=== PATIENT | male | born 1950 | race Caucasian/White ===

== ENCOUNTER 2017-11-25 23:23 | Inpatient (IN) | payer MEDICARE, OTHER ==
[2017-11-25] MEDS: DILUENT IV (23:45)
[2017-11-25] MEDS: NS IV (23:45)
[2017-11-26] MEDS: ACETAMINOPHEN 325 MG TAB PO (00:01)
[2017-11-26] MEDS: ONDANSETRON 4MG/2ML VIAL (J2405) IV (00:02)
[2017-11-26] MEDS: KETOROLAC 30 MG/ML VIAL (J1885) IV (00:02)
[2017-11-26] MEDS: MORPHINE 4 MG/ML 1ML VIAL/SYRINGE (J2270) IV (00:02)
[2017-11-26 00:22] LABS: BASO # 0.1 10^3/uL (0.0-0.2); BASO % 0.7 % (0.0-1.0); EOS % 0.1 % (0.0-3.0); HEMATOCRIT 46.4 % (42.0-52.0); HEMOGLOBIN 15.9 g/dl (13.5-17.5); IMMATURE GRANULOCYTE % 0.5 % (0-3.0); LYMPH # 1.1 10^3/uL (1.5-4.5); LYMPH % 5.8 % (24.0-44.0); MEAN CORPUSCULAR HEMOGLOBIN 31.5 pg (27.0-33.0); MEAN CORPUSCULAR HGB CONC 34.3 g/dl (32.0-36.5); MEAN CORPUSCULAR VOLUME 92.1 fl (80.0-96.0); MONO % 10.6 % (0.0-5.0); NEUTROPHILS # 16.1 10^3/uL (1.8-7.7); NEUTROPHILS % 82.3 % (36.0-66.0); PLATELET COUNT, AUTOMATED 192 10^3/uL (150-450); RED BLOOD COUNT 5.04 10^6/uL (4.30-6.10); RED CELL DISTRIBUTION WIDTH 14.6 % (11.5-14.5); WHITE BLOOD COUNT 19.5 10^3/uL (4.0-10.0)
[2017-11-26 00:24] LABS: ALBUMIN 3.1 GM/DL (3.2-5.2); ALBUMIN/GLOBULIN RATIO 0.62 (1.00-1.93); ALKALINE PHOSPHATASE 58 U/L (45-117); ALT/SGPT 27 U/L (12-78); ANION GAP 10 MEQ/L (8-16); AST/SGOT 21 U/L (7-37); BILIRUBIN,DIRECT 0.4 MG/DL (0.0-0.2); BLOOD UREA NITROGEN 27 MG/DL (7-18); CALCIUM LEVEL 8.1 MG/DL (8.8-10.2); CARBON DIOXIDE LEVEL 27 MEQ/L (21-32); CHLORIDE LEVEL 100 MEQ/L (98-107); CREATININE FOR GFR 2.25 MG/DL (0.70-1.30); GLOMERULAR FILTRATION RATE 31.1 (>49); GLUCOSE, FASTING 127 MG/DL (70-100); POTASSIUM SERUM 3.8 MEQ/L (3.5-5.1); SODIUM LEVEL 137 MEQ/L (136-145); TOTAL PROTEIN 8.1 GM/DL (6.4-8.2)
[2017-11-26 00:42] LABS: LACTIC ACID SEPSIS PROTOCOL 2.1 MMOL/L (0.4-2.0)
[2017-11-26 00:47] LABS: MONO # 2.1 10^3/uL (0.0-0.8); POSITIVE DIFF POS FLAG
[2017-11-26 04:24] LABS: APPEARANCE, URINE HAZY (CLEAR); BACTERIA, URINE AUTO NEGATIVE (NEGATIVE); BILIRUBIN, URINE AUTO NEGATIVE (NEGATIVE); BLOOD, URINE BLOOD NEGATIVE (NEGATIVE); COLOR, URINE AMBER (YELLOW); GLUCOSE, URINE (UA) AUTO NEGATIVE (NEGATIVE); KETONE, URINE AUTO NEGATIVE (NEGATIVE); LEUKOCYTE ESTERASE, URINE AUTO NEGATIVE (NEGATIVE); MUCUS, URINE SMALL (NEGATIVE); NITRITE, URINE AUTO NEGATIVE (NEGATIVE); PROTEIN, URINE AUTO 2+ mg/dL (NEGATIVE); RBC, URINE AUTO 1 /HPF (0-3); SPECIFIC GRAVITY URINE AUTO 1.018 (1.002-1.035); SQUAMOUS EPITHELIAL CELL UR AU 1 /HPF (0-6); WBC, URINE AUTO 2 /HPF (0-3)
[2017-11-26] MEDS: LevoFLOXacin IV 750 MG in APPROPRIATE DILUENT 1 EA IV (04:38)
[2017-11-26] MEDS ORDERED: IPRATROPIUM 0.5MG/ALBUTEROL 2.5MG INH SOL UD 3ML (DUONEB)(J7620) NEB (05:30)
[2017-11-26] MEDS: HEPARIN SOD (PORCINE) 5000 UNITS/ML VIAL SC ×3 (06:00→22:06)
[2017-11-26] MEDS: IPRATROPIUM 0.5MG/ALBUTEROL 2.5MG INH SOL UD 3ML (DUONEB)(J7620) NEB ×4 (08:00→20:00)
[2017-11-26] MEDS: TIOTROPIUM INHALER/CAPSULE (SPIRIVA) INH (08:31)
[2017-11-26] MEDS: ADVAIR HFA 230/21MCG INHALER INH ×2 (08:31→20:16)
[2017-11-26] MEDS: NS 1,000 ML IV ×2 (09:07→16:12)
[2017-11-26] MEDS: ASPIRIN 81 MG ENTERIC TAB PO (09:55)
[2017-11-26] MEDS: buPROPion **SR TABLET** (ZYBAN) 150MG PO ×2 (09:55→22:05)
[2017-11-26] MEDS: GABAPENTIN 300 MG CAP PO ×4 (09:55→22:05)
[2017-11-26] MEDS: OMEPRAZOLE 20 MG CAP PO (09:55)
[2017-11-26] MEDS: HYDROcodone/APAP LIQUID 7.5-325MG 15ML UDC (LORTAB ELIXIR) PO ×3 (09:58→22:23)
[2017-11-26] MEDS: NITROGLYCERIN 0.4 MG/HR PATCH TOP (09:59)
[2017-11-26] MEDS: VANCOMYCIN HCL 1,000 MG, VIAL MATE ADAPTER 1 EACH in D5W 250 ML IV (09:59)
[2017-11-26] MEDS: VANCOMYCIN HCL 500 MG in D5W MINI-BAG PLUS 100 ML IV (12:34)
[2017-11-26] MEDS: PRAVASTATIN 20 MG TAB PO (17:47)
[2017-11-26] MEDS: ACETAMINOPHEN TAB 650MG DOSE (2X325MG) PO (17:48)
[2017-11-26 18:31] LABS: ABG BASE EXCESS -4.1 (-2.0-2.0); ABG HCO3 19.2 MEQ/L (22.0-26.0); ABG O2 SATURATION 86.5 % (95.0-99.0); ABG PARTIAL PRESSURE CO2 30.6 mmHg (35.0-45.0); ABG PARTIAL PRESSURE O2 50.2 mmHg (75.0-100.0); ABG STANDARD HCO3 20.9 MEQ/L (22.0-26.0); ABG TOTAL CO2 20.2 MEQ/L (23.0-31.0); ABG pH (ARTERIAL) 7.416 UNITS (7.350-7.450)
[2017-11-26 18:41] LABS: BASO # 0.1 10^3/uL (0.0-0.2); BASO % 0.3 % (0.0-1.0); HEMATOCRIT 42.2 % (42.0-52.0); IMMATURE GRANULOCYTE % 0.8 % (0-3.0); LYMPH # 0.5 10^3/uL (1.5-4.5); LYMPH % 3.2 % (24.0-44.0); MEAN CORPUSCULAR HEMOGLOBIN 31.2 pg (27.0-33.0); MEAN CORPUSCULAR HGB CONC 33.2 g/dl (32.0-36.5); MONO % 5.9 % (0.0-5.0); NEUTROPHILS # 14.8 10^3/uL (1.8-7.7); NEUTROPHILS % 89.8 % (36.0-66.0); PLATELET COUNT, AUTOMATED 152 10^3/uL (150-450); RED BLOOD COUNT 4.49 10^6/uL (4.30-6.10); RED CELL DISTRIBUTION WIDTH 14.9 % (11.5-14.5); WHITE BLOOD COUNT 16.5 10^3/uL (4.0-10.0)
[2017-11-26 19:00] LABS: LACTIC ACID SEPSIS PROTOCOL 1.7 MMOL/L (0.4-2.0)
[2017-11-26 19:05] LABS: ANION GAP 10 MEQ/L (8-16); BLOOD UREA NITROGEN 36 MG/DL (7-18); CALCIUM LEVEL 6.7 MG/DL (8.8-10.2); CARBON DIOXIDE LEVEL 23 MEQ/L (21-32); CHLORIDE LEVEL 104 MEQ/L (98-107); CREATININE FOR GFR 2.21 MG/DL (0.70-1.30); GLOMERULAR FILTRATION RATE 31.8 (>49); GLUCOSE, FASTING 120 MG/DL (70-100); MAGNESIUM LEVEL 1.4 MG/DL (1.8-2.4); POTASSIUM SERUM 4.6 MEQ/L (3.5-5.1); SODIUM LEVEL 137 MEQ/L (136-145)
[2017-11-26 19:21] LABS: ERYTHROCYTE SEDIMENTATION RATE 64 mm/hr (0-20)
[2017-11-26] MEDS: **NOTE PATIENT COMMENT** MISC XX (21:00)
[2017-11-26] MEDS: MAG SULF 1GM/100ML (MAG RUN) 1 GM in APPROPRIATE DILUENT 1 EA IV (22:05)
[2017-11-27] MEDS: NS 1,000 ML IV ×3 (00:05→23:50)
[2017-11-27] MEDS: MAG SULF 1GM/100ML (MAG RUN) 1 GM in APPROPRIATE DILUENT 1 EA IV (00:11)
[2017-11-27] MEDS ORDERED: ONDANSETRON 4MG/2ML VIAL (J2405) IV (05:00)
[2017-11-27 05:31] LABS: BASO # 0.1 10^3/uL (0.0-0.2); BASO % 0.4 % (0.0-1.0); HEMATOCRIT 41.2 % (42.0-52.0); IMMATURE GRANULOCYTE % 0.7 % (0-3.0); LYMPH # 0.6 10^3/uL (1.5-4.5); LYMPH % 3.7 % (24.0-44.0); MEAN CORPUSCULAR HEMOGLOBIN 31.6 pg (27.0-33.0); MONO # 0.9 10^3/uL (0.0-0.8); MONO % 5.7 % (0.0-5.0); NEUTROPHILS # 13.7 10^3/uL (1.8-7.7); NEUTROPHILS % 89.5 % (36.0-66.0); PLATELET COUNT, AUTOMATED 156 10^3/uL (150-450); RED BLOOD COUNT 4.43 10^6/uL (4.30-6.10); RED CELL DISTRIBUTION WIDTH 15.1 % (11.5-14.5); WHITE BLOOD COUNT 15.3 10^3/uL (4.0-10.0)
[2017-11-27 05:54] LABS: ANION GAP 10 MEQ/L (8-16); BLOOD UREA NITROGEN 34 MG/DL (7-18); CALCIUM LEVEL 7.1 MG/DL (8.8-10.2); CARBON DIOXIDE LEVEL 21 MEQ/L (21-32); CHLORIDE LEVEL 105 MEQ/L (98-107); CREATININE FOR GFR 2.03 MG/DL (0.70-1.30); GLUCOSE, FASTING 133 MG/DL (70-100); MAGNESIUM LEVEL 2.4 MG/DL (1.8-2.4); POTASSIUM SERUM 4.2 MEQ/L (3.5-5.1); SODIUM LEVEL 136 MEQ/L (136-145)
[2017-11-27] MEDS: ONDANSETRON 4MG/2ML VIAL (J2405) IV (05:59)
[2017-11-27] MEDS: VANCOMYCIN HCL 1,000 MG, VIAL MATE ADAPTER 1 EACH in D5W 250 ML IV ×2 (06:00→17:40)
[2017-11-27] MEDS: HEPARIN SOD (PORCINE) 5000 UNITS/ML VIAL SC ×3 (06:00→21:11)
[2017-11-27] MEDS: ADVAIR HFA 230/21MCG INHALER INH ×2 (08:01→20:14)
[2017-11-27] MEDS: TIOTROPIUM INHALER/CAPSULE (SPIRIVA) INH (08:01)
[2017-11-27] MEDS: IPRATROPIUM 0.5MG/ALBUTEROL 2.5MG INH SOL UD 3ML (DUONEB)(J7620) NEB ×5 (08:01→23:08)
[2017-11-27] MEDS: OMEPRAZOLE 20 MG CAP PO (08:48)
[2017-11-27] MEDS: buPROPion **SR TABLET** (ZYBAN) 150MG PO ×2 (08:48→21:12)
[2017-11-27] MEDS: GABAPENTIN 300 MG CAP PO ×4 (08:49→21:12)
[2017-11-27] MEDS: HYDROcodone/APAP LIQUID 7.5-325MG 15ML UDC (LORTAB ELIXIR) PO ×3 (08:49→21:13)
[2017-11-27] MEDS: ASPIRIN 81 MG ENTERIC TAB PO (08:52)
[2017-11-27] MEDS: NITROGLYCERIN 0.4 MG/HR PATCH TOP (08:53)
[2017-11-27] MEDS: methylPREDNISolone INJ 40 MG/1 ML VIAL (J2920) IV ×2 (09:36→21:11)
[2017-11-27 10:37] LABS: VANCOMYCIN LEVEL TROUGH 7.8 UG/ML (10.0-20.0)
[2017-11-27] MEDS: PRAVASTATIN 20 MG TAB PO (17:40)
[2017-11-27] MEDS: **NOTE PATIENT COMMENT** MISC XX (21:00)
[2017-11-28] MEDS: IPRATROPIUM 0.5MG/ALBUTEROL 2.5MG INH SOL UD 3ML (DUONEB)(J7620) NEB ×6 (03:09→23:41)
[2017-11-28 05:25] LABS: HEMATOCRIT 35.7 % (42.0-52.0); HEMOGLOBIN 12.2 g/dl (13.5-17.5); MEAN CORPUSCULAR HEMOGLOBIN 31.6 pg (27.0-33.0); MEAN CORPUSCULAR HGB CONC 34.2 g/dl (32.0-36.5); MEAN CORPUSCULAR VOLUME 92.5 fl (80.0-96.0); PLATELET COUNT, AUTOMATED 152 10^3/uL (150-450); RED BLOOD COUNT 3.86 10^6/uL (4.30-6.10); WHITE BLOOD COUNT 8.6 10^3/uL (4.0-10.0)
[2017-11-28 05:58] LABS: ANION GAP 8 MEQ/L (8-16); BLOOD UREA NITROGEN 25 MG/DL (7-18); CALCIUM LEVEL 7.1 MG/DL (8.8-10.2); CARBON DIOXIDE LEVEL 23 MEQ/L (21-32); CHLORIDE LEVEL 108 MEQ/L (98-107); CREATININE FOR GFR 1.39 MG/DL (0.70-1.30); GLOMERULAR FILTRATION RATE 54.3 (>49); GLUCOSE, FASTING 171 MG/DL (70-100); MAGNESIUM LEVEL 2.5 MG/DL (1.8-2.4); POTASSIUM SERUM 4.2 MEQ/L (3.5-5.1); SODIUM LEVEL 139 MEQ/L (136-145)
[2017-11-28] MEDS: HEPARIN SOD (PORCINE) 5000 UNITS/ML VIAL SC ×3 (06:34→20:28)
[2017-11-28] MEDS: TIOTROPIUM INHALER/CAPSULE (SPIRIVA) INH (07:38)
[2017-11-28] MEDS: ADVAIR HFA 230/21MCG INHALER INH ×2 (07:39→20:01)
[2017-11-28] MEDS: GABAPENTIN 300 MG CAP PO ×4 (09:00→20:29)
[2017-11-28] MEDS: LevoFLOXacin IV 750 MG in APPROPRIATE DILUENT 1 EA IV (10:00)
[2017-11-28] MEDS: OMEPRAZOLE 20 MG CAP PO (10:00)
[2017-11-28] MEDS: HYDROcodone/APAP LIQUID 7.5-325MG 15ML UDC (LORTAB ELIXIR) PO ×3 (10:01→20:29)
[2017-11-28] MEDS: ASPIRIN 81 MG ENTERIC TAB PO (10:01)
[2017-11-28] MEDS: buPROPion **SR TABLET** (ZYBAN) 150MG PO ×2 (10:02→20:29)
[2017-11-28] MEDS: methylPREDNISolone INJ 40 MG/1 ML VIAL (J2920) IV ×2 (10:02→21:28)
[2017-11-28] MEDS: NITROGLYCERIN 0.4 MG/HR PATCH TOP (10:02)
[2017-11-28] MEDS ORDERED: SLF 3 ML SYR IV (11:00)
[2017-11-28 12:00] LABS: VANCOMYCIN LEVEL TROUGH 5.2 UG/ML (10.0-20.0)
[2017-11-28] MEDS: SLF 3 ML SYR IV ×2 (13:14→20:30)
[2017-11-28] MEDS: VANCOMYCIN HCL 500 MG in D5W MINI-BAG PLUS 100 ML IV (13:14)
[2017-11-28] MEDS: VANCOMYCIN HCL 1,000 MG, VIAL MATE ADAPTER 1 EACH in D5W 250 ML IV (13:14)
[2017-11-28] MEDS: PRAVASTATIN 20 MG TAB PO (18:23)
[2017-11-28] MEDS: **NOTE PATIENT COMMENT** MISC XX (20:30)
[2017-11-28 21:14] LABS: BEDSIDE GLUCOSE 133 MG/DL (80-115)
[2017-11-28] MEDS: BUMETANIDE 1 MG TAB PO (21:29)
[2017-11-29 00:07] LABS: BODY FLUID CULTURE Not Indicated (.); ORGANISM ID Not indicated. (.); SPECIMEN SOURCE Urine (.); URINE STREP PNEUMONIAE ANTIGEN Negative (Negative)
[2017-11-29] MEDS: VANCOMYCIN HCL 1,000 MG, VIAL MATE ADAPTER 1 EACH in D5W 250 ML IV ×2 (01:45→13:10)
[2017-11-29] MEDS: IPRATROPIUM 0.5MG/ALBUTEROL 2.5MG INH SOL UD 3ML (DUONEB)(J7620) NEB ×6 (03:47→23:23)
[2017-11-29] MEDS: SLF 3 ML SYR IV ×3 (05:22→22:20)
[2017-11-29] MEDS: HEPARIN SOD (PORCINE) 5000 UNITS/ML VIAL SC ×3 (05:22→19:58)
[2017-11-29 05:36] LABS: HEMATOCRIT 37.1 % (42.0-52.0); HEMOGLOBIN 12.7 g/dl (13.5-17.5); MEAN CORPUSCULAR HEMOGLOBIN 31.2 pg (27.0-33.0); MEAN CORPUSCULAR HGB CONC 34.2 g/dl (32.0-36.5); MEAN CORPUSCULAR VOLUME 91.2 fl (80.0-96.0); PLATELET COUNT, AUTOMATED 223 10^3/uL (150-450); RED BLOOD COUNT 4.07 10^6/uL (4.30-6.10); RED CELL DISTRIBUTION WIDTH 15.2 % (11.5-14.5); WHITE BLOOD COUNT 12.2 10^3/uL (4.0-10.0)
[2017-11-29 05:51] LABS: ANION GAP 6 MEQ/L (8-16); BLOOD UREA NITROGEN 27 MG/DL (7-18); CALCIUM LEVEL 7.3 MG/DL (8.8-10.2); CARBON DIOXIDE LEVEL 28 MEQ/L (21-32); CHLORIDE LEVEL 108 MEQ/L (98-107); GLOMERULAR FILTRATION RATE 49.7 (>49); GLUCOSE, FASTING 132 MG/DL (70-100); MAGNESIUM LEVEL 2.2 MG/DL (1.8-2.4); POTASSIUM SERUM 4.6 MEQ/L (3.5-5.1); SODIUM LEVEL 142 MEQ/L (136-145)
[2017-11-29] MEDS: TIOTROPIUM INHALER/CAPSULE (SPIRIVA) INH (07:30)
[2017-11-29] MEDS: ADVAIR HFA 230/21MCG INHALER INH ×2 (07:30→20:45)
[2017-11-29] MEDS: methylPREDNISolone INJ 40 MG/1 ML VIAL (J2920) IV ×2 (08:44→22:20)
[2017-11-29] MEDS: NITROGLYCERIN 0.4 MG/HR PATCH TOP (08:44)
[2017-11-29] MEDS: buPROPion **SR TABLET** (ZYBAN) 150MG PO ×2 (08:45→19:58)
[2017-11-29] MEDS: OMEPRAZOLE 20 MG CAP PO (08:45)
[2017-11-29] MEDS: GABAPENTIN 300 MG CAP PO ×4 (08:45→19:58)
[2017-11-29] MEDS: HYDROcodone/APAP LIQUID 7.5-325MG 15ML UDC (LORTAB ELIXIR) PO ×3 (08:45→19:57)
[2017-11-29] MEDS: ASPIRIN 81 MG ENTERIC TAB PO (08:46)
[2017-11-29] MEDS ORDERED: VANCOMYCIN HCL 500 MG in D5W MINI-BAG PLUS 100 ML IV (14:00)
[2017-11-29] MEDS: PRAVASTATIN 20 MG TAB PO (18:12)
[2017-11-29] MEDS: **NOTE PATIENT COMMENT** MISC XX (19:58)
[2017-11-29 20:03] LABS: BEDSIDE GLUCOSE 150 MG/DL (80-115)
[2017-11-30 00:07] LABS: LEGIONELLA ANTIGEN URINE Positive (Negative)
[2017-11-30] MEDS: IPRATROPIUM 0.5MG/ALBUTEROL 2.5MG INH SOL UD 3ML (DUONEB)(J7620) NEB ×6 (04:02→23:49)
[2017-11-30] MEDS: SLF 3 ML SYR IV ×3 (05:09→21:52)
[2017-11-30] MEDS: HEPARIN SOD (PORCINE) 5000 UNITS/ML VIAL SC ×3 (05:09→21:52)
[2017-11-30 06:21] LABS: HEMATOCRIT 38.5 % (42.0-52.0); HEMOGLOBIN 12.9 g/dl (13.5-17.5); MEAN CORPUSCULAR HEMOGLOBIN 30.6 pg (27.0-33.0); MEAN CORPUSCULAR HGB CONC 33.5 g/dl (32.0-36.5); MEAN CORPUSCULAR VOLUME 91.4 fl (80.0-96.0); PLATELET COUNT, AUTOMATED 240 10^3/uL (150-450); RED BLOOD COUNT 4.21 10^6/uL (4.30-6.10); RED CELL DISTRIBUTION WIDTH 14.9 % (11.5-14.5)
[2017-11-30 06:39] LABS: ANION GAP 7 MEQ/L (8-16); BLOOD UREA NITROGEN 30 MG/DL (7-18); C REACTIVE PROTEIN QUANTITATIV 6.36 MG/DL (0.00-0.30); CALCIUM LEVEL 7.6 MG/DL (8.8-10.2); CARBON DIOXIDE LEVEL 26 MEQ/L (21-32); CHLORIDE LEVEL 112 MEQ/L (98-107); CREATININE FOR GFR 1.36 MG/DL (0.70-1.30); GLOMERULAR FILTRATION RATE 55.6 (>49); GLUCOSE, FASTING 149 MG/DL (70-100); MAGNESIUM LEVEL 2.2 MG/DL (1.8-2.4); POTASSIUM SERUM 4.5 MEQ/L (3.5-5.1); SODIUM LEVEL 145 MEQ/L (136-145)
[2017-11-30] MEDS: ADVAIR HFA 230/21MCG INHALER INH ×2 (07:27→20:46)
[2017-11-30] MEDS: TIOTROPIUM INHALER/CAPSULE (SPIRIVA) INH (07:28)
[2017-11-30] MEDS: LevoFLOXacin IV 750 MG in APPROPRIATE DILUENT 1 EA IV (08:02)
[2017-11-30] MEDS: GABAPENTIN 300 MG CAP PO ×4 (08:03→20:14)
[2017-11-30] MEDS: buPROPion **SR TABLET** (ZYBAN) 150MG PO ×2 (08:03→20:14)
[2017-11-30] MEDS: ASPIRIN 81 MG ENTERIC TAB PO (08:03)
[2017-11-30] MEDS: HYDROcodone/APAP LIQUID 7.5-325MG 15ML UDC (LORTAB ELIXIR) PO ×3 (08:06→20:17)
[2017-11-30] MEDS: OMEPRAZOLE 20 MG CAP PO (08:06)
[2017-11-30] MEDS: NITROGLYCERIN 0.4 MG/HR PATCH TOP (08:07)
[2017-11-30] MEDS: methylPREDNISolone INJ 40 MG/1 ML VIAL (J2920) IV ×2 (09:10→21:52)
[2017-11-30] MEDS: BUMETANIDE 1 MG TAB PO (11:25)
[2017-11-30] MEDS: PRAVASTATIN 20 MG TAB PO (16:41)
[2017-11-30] MEDS: **NOTE PATIENT COMMENT** MISC XX (21:00)
[2017-12-01] MEDS: IPRATROPIUM 0.5MG/ALBUTEROL 2.5MG INH SOL UD 3ML (DUONEB)(J7620) NEB ×2 (03:46→07:17)
[2017-12-01 05:59] LABS: HEMATOCRIT 39.5 % (42.0-52.0); HEMOGLOBIN 13.4 g/dl (13.5-17.5); MEAN CORPUSCULAR HEMOGLOBIN 31.3 pg (27.0-33.0); MEAN CORPUSCULAR HGB CONC 33.9 g/dl (32.0-36.5); MEAN CORPUSCULAR VOLUME 92.3 fl (80.0-96.0); PLATELET COUNT, AUTOMATED 288 10^3/uL (150-450); RED BLOOD COUNT 4.28 10^6/uL (4.30-6.10); RED CELL DISTRIBUTION WIDTH 15.1 % (11.5-14.5); WHITE BLOOD COUNT 12.8 10^3/uL (4.0-10.0)
[2017-12-01] MEDS: HEPARIN SOD (PORCINE) 5000 UNITS/ML VIAL SC (06:00)
[2017-12-01] MEDS: SLF 3 ML SYR IV (06:11)
[2017-12-01 06:17] LABS: ANION GAP 7 MEQ/L (8-16); BLOOD UREA NITROGEN 31 MG/DL (7-18); C REACTIVE PROTEIN QUANTITATIV 3.58 MG/DL (0.00-0.30); CALCIUM LEVEL 7.5 MG/DL (8.8-10.2); CARBON DIOXIDE LEVEL 28 MEQ/L (21-32); CHLORIDE LEVEL 110 MEQ/L (98-107); CREATININE FOR GFR 1.45 MG/DL (0.70-1.30); GLOMERULAR FILTRATION RATE 51.7 (>49); GLUCOSE, FASTING 144 MG/DL (70-100); MAGNESIUM LEVEL 2.1 MG/DL (1.8-2.4); POTASSIUM SERUM 4.3 MEQ/L (3.5-5.1); SODIUM LEVEL 145 MEQ/L (136-145)
[2017-12-01] MEDS: TIOTROPIUM INHALER/CAPSULE (SPIRIVA) INH (07:14)
[2017-12-01] MEDS: ADVAIR HFA 230/21MCG INHALER INH (07:14)
[2017-12-01] MEDS: NITROGLYCERIN 0.4 MG/HR PATCH TOP (08:34)
[2017-12-01] MEDS: GABAPENTIN 300 MG CAP PO (08:35)
[2017-12-01] MEDS: OMEPRAZOLE 20 MG CAP PO (08:35)
[2017-12-01] MEDS: predniSONE 20 MG TAB PO (08:35)
[2017-12-01] MEDS: HYDROcodone/APAP LIQUID 7.5-325MG 15ML UDC (LORTAB ELIXIR) PO (08:36)
[2017-12-01] MEDS: ASPIRIN 81 MG ENTERIC TAB PO (08:36)
[2017-12-01] MEDS: buPROPion **SR TABLET** (ZYBAN) 150MG PO (08:36)
== END 2017-12-01 10:55 | disposition home or self-care (01) | DRG 871 ==
LOC: M ED 23:23 → M ED INP 11-26 05:21 → M PCU 11-26 09:00
DX: A41.9 Sepsis, unspecified organism (principal); J18.9 Pneumonia, unspecified organism; J96.01 Acute respiratory failure with hypoxia; N17.9 Acute kidney failure, unspecified; J44.0 Chronic obstructive pulmonary disease with (acute) lower respiratory infection; R65.20 Severe sepsis without septic shock; M54.9 Dorsalgia, unspecified; R91.8 Other nonspecific abnormal finding of lung field; E83.42 Hypomagnesemia; I50.9 Heart failure, unspecified; I11.0 Hypertensive heart disease with heart failure; K21.9 Gastro-esophageal reflux disease without esophagitis; E78.5 Hyperlipidemia, unspecified; M21.371 Foot drop, right foot; Z79.82 Long term (current) use of aspirin; Z79.899 Other long term (current) drug therapy; Z88.1 Allergy status to other antibiotic agents; Z87.891 Personal history of nicotine dependence; Z79.891 Long term (current) use of opiate analgesic

== ENCOUNTER → 2018-04-13 | Outpatient (CLI) | payer MEDICARE, OTHER | LOC: M RAD 10:23 | DX: J43.9 Emphysema, unspecified (principal); R91.8 Other nonspecific abnormal finding of lung field; Z87.891 Personal history of nicotine dependence | CPT/HCPCS: 71250 ==

== ENCOUNTER → 2018-04-18 | Outpatient (CLI) | payer MEDICARE, OTHER ==
[~2018-04-18] MED LIST: ADV500INH INH; ASPI1TAB PO; BUME2TAB PO; BUPR15TASR PO; DILT120C82 PO; GABA-843 PO; HYDR-3716 PO; LEVA750T7 PO; MUCI600T31 PO; NITR0.4D6 TOP; OMEP40CA2 PO; POTA1TAB14 PO; PRAV20TA2 PO; PRED10TA2 PO; TIOT18INH INH
--- NOTE | 2018-04-18 11:05 | REP ---
Chest two views HISTORY: Cough Comparison: 12/15/2017 Linear densities are present in the upper lobes consistent with scarring. Bullae are present in the upper lobes. The heart is normal in size. The pulmonary vasculature is normal in appearance. The bony structure is intact. IMPRESSION: COPD. Electronically Signed by Man Smith MD 04/18/2018 10:57 A
== END ==
LOC: M LRY 10:32
PROVIDERS: ATTEND Nurse Practitioner Family
DX: J44.9 Chronic obstructive pulmonary disease, unspecified (principal); R05 Cough
CPT/HCPCS: 71046; G0463

== ENCOUNTER → 2018-10-24 | Outpatient (CLI) | payer OTHER, MEDICARE ==
[~2018-10-24] MED LIST changes: -ASPI1TAB PO; +ASPI81TA26 PO; -BUME2TAB PO; +BUME2TAB3 PO; -DILT120C82 PO; +DILT1CAP PO
--- NOTE | 2018-10-24 13:43 | REP ---
PET/CT: HISTORY: Diagnosing abnormal results of function studies of organs. COMPARISONS: Comparison chest CT study April 13, 2018. Comparison is also made with the November 26, [address] TECHNIQUE: 51 minutes following the intravenous injection of a 9.11 mCi dose of F-18 FDG, three-dimensional PET scintigraphy is acquired from the skull base to the proximal thighs. Triplanar noncontrast CT scanning is acquired through the same anatomic range for attenuation correction, and image registration with scan parameters optimized to minimize radiation exposure to the patient. PET scintigraphy and CT datasets were fused and displayed on a workstation with multiplanar and projection display capability. PET/CT FINDINGS: There is a new band of linear atelectasis in the right upper lobe oriented obliquely on today's accompanying CT study. This is not apparent April 13, 2018 or November 26, 2017. There is no discernible FDP accumulation however; this is not hypermetabolic. There is no abnormal hypermetabolic uptake visible in the chest. No hypermetabolic hilar or mediastinal price uptake is seen. Head and neck soft tissues are unremarkable. In the abdomen and pelvis, there is no abnormal hypermetabolic uptake. Incidental note is made of a 3.5 cm infrarenal abdominal aortic aneurysm. IMPRESSION: Negative PET scintigraphy. There is a linear band of new atelectasis in the right upper lobe visible today on CT, but no abnormal hypermetabolic uptake is seen in the chest. Emphysematous changes are again noted. Electronically Signed by Osei Pino MD 10/24/2018 04:05 P
== END ==
LOC: M PLARAD 09:26
DX: Z87.891 Personal history of nicotine dependence (principal); J98.11 Atelectasis; I71.4 Abdominal aortic aneurysm, without rupture; Z95.5 Presence of coronary angioplasty implant and graft; R91.8 Other nonspecific abnormal finding of lung field
CPT/HCPCS: 78815; A9552

== ENCOUNTER 2019-10-31 10:52 | Inpatient (IN) | payer MEDICARE, OTHER ==
[~2019-10-31] VITALS: Ht 180.3 cm; Wt 108.0 kg
[~2019-10-31 10:52] MED LIST changes: +GABA-282 PO; -GABA-843 PO; -OMEP40CA2 PO; +OMEP40CA97 PO
[2019-10-31 15:45] VITALS: BP 145/68
[2019-10-31 16:11] LABS: ABG BASE EXCESS -2.1 (-2.0-2.0); ABG HCO3 20.8 MEQ/L (22.0-26.0); ABG O2 SATURATION 91.2 % (95.0-99.0); ABG PARTIAL PRESSURE CO2 30.8 mmHg (35.0-45.0); ABG PARTIAL PRESSURE O2 59.1 mmHg (75.0-100.0); ABG STANDARD HCO3 22.6 MEQ/L (22.0-26.0); ABG TOTAL CO2 21.7 MEQ/L (23.0-31.0); ABG pH (ARTERIAL) 7.447 UNITS (7.350-7.450)
[2019-10-31 16:16] LABS: BASO # 0.1 10^3/uL (0.0-0.2); BASO % 0.2 % (0.0-1.0); HEMOGLOBIN 14.7 g/dl (13.5-17.5); LYMPH # 0.6 10^3/uL (1.5-5.0); LYMPH % 2.1 % (24.0-44.0); MEAN CORPUSCULAR HEMOGLOBIN 31.5 pg (27.0-33.0); MEAN CORPUSCULAR HGB CONC 33.4 g/dl (32.0-36.5); MEAN CORPUSCULAR VOLUME 94.4 fl (80.0-96.0); MONO # 1.1 10^3/uL (0.0-0.8); NEUTROPHILS # 25.8 10^3/uL (1.5-8.5); NEUTROPHILS % 92.9 % (36.0-66.0); PLATELET COUNT, AUTOMATED 226 10^3/uL (150-450); RED BLOOD COUNT 4.66 10^6/uL (4.30-6.10); WHITE BLOOD COUNT 27.8 10^3/uL (4.0-10.0)
[2019-10-31] MEDS ORDERED: SPIR1CAP INH (16:16)
[2019-10-31] MEDS ORDERED: D31000TA2 PO (16:16)
[2019-10-31] MEDS ORDERED: LOVE1INJ2 SC (16:16)
[2019-10-31] MEDS ORDERED: ZOSY1INJ5 IV (16:16)
[2019-10-31] MEDS ORDERED: INSUH10VL SC (16:16)
[2019-10-31] MEDS ORDERED: CVS1CAP2 PO (16:16)
[2019-10-31] MEDS ORDERED: IPRA0.00 INH (16:16)
[2019-10-31] MEDS ORDERED: HYDR-4514 PO (16:16)
[2019-10-31] MEDS ORDERED: METH125I3 IV (16:16)
[2019-10-31 16:45] LABS: ALBUMIN 2.7 GM/DL (3.2-5.2); ALT/SGPT 16 U/L (12-78); BILIRUBIN,TOTAL 0.5 MG/DL (0.2-1.0); BLOOD UREA NITROGEN 30 MG/DL (7-18); CALCIUM LEVEL 8.2 MG/DL (8.8-10.2); CARBON DIOXIDE LEVEL 23 MEQ/L (21-32); CHLORIDE LEVEL 105 MEQ/L (98-107); CK-MB VALUE MASS 3.2 NG/ML (<3.6); CPK CREATINE PHOSPHOKINASE 120 U/L (39-308); GLOMERULAR FILTRATION RATE 37.6 (>49); GLUCOSE, FASTING 158 MG/DL (70-100); MB/CK RELATIVE INDEX 2.67 (< OR =4); NT-PRO BNP 799 PG/ML (<125); POTASSIUM SERUM 3.5 MEQ/L (3.5-5.1); SODIUM LEVEL 139 MEQ/L (136-145); TOTAL PROTEIN 6.2 GM/DL (6.4-8.2); TROPONIN I < 0.02 NG/ML (< 0.10)
[2019-10-31 16:49] LABS: ERYTHROCYTE SEDIMENTATION RATE 59 mm/hr (0-20)
[2019-10-31] MEDS ORDERED: IPRATROPIUM 0.5MG/ALBUTEROL 2.5MG INH SOL UD 3ML (DUONEB) INH PRN (17:45)
[2019-10-31 18:00] VITALS: BP 120/69
[2019-10-31] MEDS ORDERED: methylPREDNISolone 125MG 2ML VIAL IV SCH (18:00)
[2019-10-31] MEDS: PIPERACILLIN/TAZOBACTAM SOD 2.25 GM in D5W MINI-BAG PLUS 50 ML IV SCH (18:09)
[2019-10-31] MEDS: GABAPENTIN 300 MG CAP PO SCH ×2 (18:09→21:04)
[2019-10-31] MEDS: methylPREDNISolone 40MG 1ML VIAL IV SCH ×2 (18:09→23:35)
[2019-10-31] MEDS: ANEXSIA, NORCO 7.5MG/325MG TABLET(HYDROCODONE/APAP) PO PRN (18:11)
[2019-10-31] MEDS ORDERED: GLUCOSE 4GM CHEW TABLET PO PRN (18:15)
[2019-10-31] MEDS ORDERED: DEXTROSE 50% 50 ML SYRINGE IV PRN (18:15)
[2019-10-31] MEDS ORDERED: GLUCAGON INJ 1MG VIAL SC PRN (18:15)
[2019-10-31] MEDS: HumaLOG INSULIN (NovoLOG) PER UNIT SC SCH ×2 (18:25→21:00)
[2019-10-31] MEDS ORDERED: NS 500 ML IV ONE (18:45)
--- NOTE | 2019-10-31 18:52 | HPEPDOC ---
[facility] Medical History & Physical Date of Admission Oct 31, 2019 Date of Service: Oct 31, 2019 Attending Physician: KIKO RODGERS MD History and Physical CHIEF COMPLAINT: Transferred from [facility] HISTORY OF PRESENT ILLNESS: 69-year-old male with past medical history of COPD, coronary artery disease, [place], status post stent placement 2, congestive heart failure, diabetes mellitus and chronic kidney disease is transferred from [facility] for pneumonia. Patient was admitted there yesterday for pneumonia, requiring 5 L of supplemental oxygen by nasal cannula and transferred for higher level of care. Patient seen in the ICU, comfortable, reports improvement in dyspnea and cough from yesterday. He reports falling 2 weeks ago and injuring his right hand and right chest wall, has been taking shallow breaths since then and developed a cough and fever 3 days ago for which she went to the hospital. He reports improvement in symptoms since yesterday. He has no additional complaints at this time, denies nausea, vomiting, abdominal pain, diarrhea or constipation. 10 point review of system is negative so for above PAST MEDICAL HISTORY: 1. COPD. 2. Congestive heart failure. 3. Coronary artery disease. 4. Myocardial infarction. 5. Diabetes mellitus. 6. Chronic kidney disease PAST SURGICAL HISTORY: 1. Multiple neck and back surgeries. SOCIAL HISTORY: Previous smoker. Denies alcohol use. Denies drug use FAMILY HISTORY: Positive for heart disease in both parents ALLERGIES: Please see below. HOME MEDICATIONS: Please see below. PHYSICAL EXAMINATION: VITAL SIGNS: Please see below. GENERAL: No distress HEENT: Normocephalic, atraumatic, moist mucous membranes NECK: Supple CARDIOVASCULAR EXAMINATION: S1, S2, tachycardic RESPIRATORY EXAMINATION: Diminished, poor air movement, bibasilar crackles appreciated, mild wheezing ABDOMINAL EXAMINATION: Soft, nontender, nondistended, positive bowel sounds EXTREMITIES: Range of motion intact SKIN: No rash NEUROLOGICAL EXAMINATION: Alert and oriented 3, no focal deficits PSYCHIATRIC EXAMINATION: Calm and cooperative LABORATORY DATA: See below. IMAGING: CT from yesterday reviewed, showing severe COPD and right lower lobe consolidation MICROBIOLOGY: Please see below. ASSESSMENT: 69-year-old male with multiple medical comorbidities, was admitted to [facility] for pneumonia and transferred for requiring 5 L of oxygen via nasal cannula. PLAN: 1. Pneumonia. Secondary to chest wall injury, followed by shallow breathing, which likely led to atelectasis and eventually pneumonia, clinically improving since admission at [facility], continue Zosyn, pro-calcitonin ordered, incentive spirometer, blood cultures pending, lactate elevated, gentle IV hydration. 2. Acute on chronic kidney disease. Likely secondary to infection and medications, patient is very resistant to stopping Bumex as he previously became volume overloaded when it was stopped, after a long discussion patient is agreeable to holding Bumex for now. We'll provide 500 mL of normal saline and repeat lactate, patient is very resistant to receiving more IV fluids. 3. Coronary artery disease/congestive heart failure. History of [place], status post stent placement 2, continue optimal medical management with aspirin, statin. 4. COPD Continue home regimen, DuoNeb's when necessary, Solu-Medrol 40 mg every 6 hours, supplemental oxygen as needed to maintain O2 sats between 88-92%. 5. Diabetes mellitus. Sliding scale insulin coverage with meals and at bedtime 6. Chronic neck and back pain. Continue pain medication as needed DVT prophylaxis: Heparin subcutaneous GI prophylaxis: Home PPI Vital Signs Vital Signs Date Time Temp Pulse Resp B/P (MAP) Pulse Ox O2 Delivery O2 Flow Rate FiO2 10/31/19 18:11 98.1 102 28 141/68 92 Nasal Cannula 4.0 Laboratory Data Labs 24H Laboratory Tests 2 10/31/19 15:36: 10/31/19 15:46: Blood Gas Bicarbonate Standard 22.6, Arterial Blood pH 7.447, Arterial Blood Partial Pressure CO2 30.8L, Arterial Blood Partial Pressure O2 59.1L, Arterial Blood Total CO2 21.7L, Arterial Blood HCO3 20.8L, Arterial Blood Base Excess - 2.1L, Arterial Blood Oxygen Saturation 91.2L 10/31/19 16:00: Immature Granulocyte % (Auto) 0.8, Neutrophils (%) (Auto) 92.9H, Lymphocytes (%) (Auto) 2.1L, Monocytes (%) (Auto) 4.0, Eosinophils (%) (Auto) 0.0, Basophils (%) (Auto) 0.2, Neutrophils # (Auto) 25.8H, Lymphocytes # (Auto) 0.6L, Monocytes # (Auto) 1.1H, Eosinophils # (Auto) 0.0, Basophils # (Auto) 0.1, Nucleated Red Blood Cells % (auto) 0.0, Erythrocyte Sedimentation Rate 59H, Anion Gap 11, Glom erular Filtration Rate 37.6L, Lactic Acid Level 3.9*H, Calcium Level 8.2L, Total Bilirubin 0.5, Aspartate Amino Transf (AST/SGOT) 13, Alanine Aminotransferase (ALT/SGPT) 16, Alkaline Phosphatase 77, Total Creatine Kinase 120, Creatine Kinase MB 3.2, Creatine Kinase MB Relative Index 2.67, Troponin I < 0.02, C- Reactive Protein, Quantitative 30.20H, XC-Vey-N-Type Natriuretic Peptide 799H, Total Protein 6.2L, Albumin 2.7L, Albumin/Globulin Ratio 0.8 10/31/19 18:15: Bedside Glucose (Misc Panel) 161H CBC/BMP Laboratory Tests 10/31/19 16:00 Microbiology Microbiology 10/31/19 Blood Culture, Received Pending 10/31/19 Blood Culture, Received Pending 10/31/19 Respiratory Virus Panel (PCR) (SPENSER) - Final, Complete Home Medications Scheduled Aspirin (Aspirin EC) 81 Mg Tab, 81 MG PO DAILY Bumetanide (Bumetanide) 2 Mg Tab, 2 MG PO DAILY Bupropion HCl (Bupropion HCl Sr) 150 Mg Tab, 150 MG PO BID Cholecalciferol (Vitamin D3) (Vitamin D3) 1,000 Unit Tablet, 1,000 UNITS PO DAILY TAKES AT LUNCHTIME Diltiazem HCl (Diltiazem 24Hr ER) 120 Mg Cap, 120 MG PO DAILY Enoxaparin Sodium (Lovenox) 30 Mg/0.3 Ml Syringe, 30 MG SC QHS STARTED AT [facility] Gabapentin (Gabapentin) 300 Mg Cap, 300 MG PO BID TAKES BEFORE LUNCH AND SUPPER Gabapentin (Gabapentin) 300 Mg Cap, 600 MG PO QHS Hydrocodone/Acetaminophen (Hydrocodone-Acetamin 7.5-325) 1 Each Tablet, 1 TAB PO TID Insulin Human Lispro (Novolog) 100 Unit/1 Ml Vial, 1 DOSE SC ACHS STARTED AT [facility] Ipratropium/Albuterol Sulfate (Iprat-Albut 0.5-3(2.5) mg/3 ml) 3 Ml Ampul.neb, 1 GAGE INH QID STARTED AT [facility] Lactobacillus Combo No.10 (Probiotic) 1 Each Capsule, 1 CAP PO DAILY GIVEN BID AT [facility] Methylprednisolone Sod Succ (Methylprednisolone Sodium Succ) 125 Mg Vial, 125 MG IV Q6H STARTED AT [facility] Nitroglycerin (Nitroglycerin Patch) 0.4 Mg/Hr Dis, 0.4 MG TOP DAILY Omeprazole (Omeprazole) 40 Mg Cap, 40 MG PO DAILY Piperacillin Sodium/Tazobactam (Zosyn 4.5 Gram Vial) 4.5 Gm Vial, 4.5 GM IV Q6H STARTED AT [facility], RECEIVED 4 DOSES TOTAL Pravastatin Sodium (Pravastatin Sodium) 20 Mg Tab, 20 MG PO QPM Salmeterol/Fluticasone (Advair 500-50 Diskus) 28 Puff/Inhaler Aerp, 1 PUFF INH BID Tiotropium Malin (Spiriva) 18 Mcg Cap.w.dev, 1 INHALATION INH DAILY Allergies Coded Allergies: azithromycin (Verified Allergy, Mild, RASH, 10/31/19) varenicline (Verified Adverse Reaction, Unknown, LOSS OF VISION, [place]IGHT[place], 10/31/19) A-FIB/CHADSVASC A-FIB History Current/History of A-Fib/PAF?: No KIKO RODGERS MD Oct 31, 2019 18:52
[2019-10-31 20:00] VITALS: BP 115/61
[2019-10-31] MEDS: PRAVASTATIN 20 MG TAB PO SCH (21:03)
[2019-10-31] MEDS: HEPARIN SOD (PORCINE) 5000UNITS/ML 1ML VIAL/SYRINGE SC SCH (21:04)
[2019-10-31] MEDS: buPROPion **SR TABLET** (ZYBAN) 150MG PO SCH (21:04)
[2019-11-01] VITALS: BP 118/69
[2019-11-01 00:05] VITALS: BP 118/76
[2019-11-01] MEDS: PIPERACILLIN/TAZOBACTAM SOD 2.25 GM in D5W MINI-BAG PLUS 50 ML IV SCH ×4 (01:08→20:40)
[2019-11-01 05:46] LABS: HEMATOCRIT 43.1 % (42.0-52.0); HEMOGLOBIN 14.4 g/dl (13.5-17.5); MEAN CORPUSCULAR HEMOGLOBIN 31.4 pg (27.0-33.0); MEAN CORPUSCULAR HGB CONC 33.4 g/dl (32.0-36.5); MEAN CORPUSCULAR VOLUME 93.9 fl (80.0-96.0); PLATELET COUNT, AUTOMATED 220 10^3/uL (150-450); RED BLOOD COUNT 4.59 10^6/uL (4.30-6.10); WHITE BLOOD COUNT 25.9 10^3/uL (4.0-10.0)
[2019-11-01 06:00] VITALS: BP 147/89
[2019-11-01 06:00] LABS: ALBUMIN 2.5 GM/DL (3.2-5.2); BILIRUBIN,TOTAL 0.3 MG/DL (0.2-1.0); CREATININE FOR GFR 1.61 MG/DL (0.70-1.30); GLOMERULAR FILTRATION RATE 45.5 (>49); MAGNESIUM LEVEL 2.5 MG/DL (1.8-2.4); POTASSIUM SERUM 3.7 MEQ/L (3.5-5.1); TOTAL PROTEIN 5.9 GM/DL (6.4-8.2)
[2019-11-01] MEDS: methylPREDNISolone 40MG 1ML VIAL IV SCH ×4 (06:00→23:11)
[2019-11-01] MEDS: TIOTROPIUM INHALER/CAPSULE (SPIRIVA) INH SCH (08:28)
[2019-11-01] MEDS: ASPIRIN 81 MG ENTERIC TAB PO SCH (09:13)
[2019-11-01] MEDS: OMEPRAZOLE 20 MG CAP PO SCH (09:13)
[2019-11-01] MEDS: GABAPENTIN 300 MG CAP PO SCH ×3 (09:14→20:40)
[2019-11-01] MEDS: HumaLOG INSULIN (NovoLOG) PER UNIT SC SCH ×4 (09:16→20:30)
[2019-11-01] MEDS: HEPARIN SOD (PORCINE) 5000UNITS/ML 1ML VIAL/SYRINGE SC SCH ×2 (09:17→20:40)
[2019-11-01] MEDS: ANEXSIA, NORCO 7.5MG/325MG TABLET(HYDROCODONE/APAP) PO PRN ×3 (09:26→23:12)
[2019-11-01] MEDS: VITAMIN D 1,000 INTERNATIONAL UNITS TABLET PO SCH (12:59)
[2019-11-01] MEDS: buPROPion **SR TABLET** (ZYBAN) 150MG PO SCH ×2 (12:59→20:40)
--- NOTE | 2019-11-01 13:55 | IPNPDOC ---
Date Seen The patient was seen on 11/01/19. Progress Note SUBJECTIVE: Patient reports improvement in dyspnea, cough, no additional complaint at this time. He has been compliant with incentive spirometer, continues to have mild chest wall pain, denies nausea, vomiting, abdominal pain or diarrhea. PHYSICAL EXAMINATION: VITAL SIGNS: Please see below. GENERAL: No distress HEENT: Normocephalic, atraumatic, moist mucous membranes NECK: Supple CARDIOVASCULAR EXAMINATION: S1, S2, tachycardic RESPIRATORY EXAMINATION: Diminished, poor air movement, bibasilar crackles appreciated, mild wheezing ABDOMINAL EXAMINATION: Soft, nontender, nondistended, positive bowel sounds EXTREMITIES: Range of motion intact SKIN: No rash NEUROLOGICAL EXAMINATION: Alert and oriented 3, no focal deficits PSYCHIATRIC EXAMINATION: Calm and cooperative LABORATORY DATA: See below. MICROBIOLOGY: Please see below. ASSESSMENT: 69-year-old male with multiple medical comorbidities, was admitted to [facility] for pneumonia and transferred for requiring 5 L of oxygen via nasal cannula. PLAN: 1. Pneumonia. Secondary to chest wall injury, followed by shallow breathing, which likely led to atelectasis and eventually pneumonia, clinically improving, continue Zosyn, pro-calcitonin pending, incentive spirometer, blood cultures pending. Will need assessment for home oxygen prior to discharge. 2. Acute on chronic kidney disease. Improving with IV hydration and holding diuretics, can likely restart Bumex tomorrow if creatinine back to baseline. 3. Coronary artery disease/congestive heart failure. History of [place], status post stent placement 2, continue optimal medical management with aspirin, statin. 4. COPD Continue home regimen, DuoNeb's when necessary, Solu-Medrol 40 mg every 6 hours, supplemental oxygen as needed to maintain O2 sats between 88-92%. 5. Diabetes mellitus. Sliding scale insulin coverage with meals and at bedtime 6. Chronic neck and back pain. Continue pain medication as needed DVT prophylaxis: Heparin subcutaneous GI prophylaxis: Home PPI VS, I&O, 24H, Fishbone Vital Signs/I&O Vital Signs Date Time Temp Pulse Resp B/P (MAP) Pulse Ox O2 Delivery O2 Flow Rate FiO2 11/01/19 09:56 18 11/01/19 09:14 100 146/86 11/01/19 06:00 98.1 96 Nasal Cannula 4.0 I&O- Last 24 Hours up to 6 AM 11/01/19 06:00 Intake Total 1755 ml Output Total 1350 ml Balance 405 ml Laboratory Data 24H LABS Laboratory Tests 2 10/31/19 15:36: Methicillin-Resist S.aureus DNA PCR DETECTEDA 10/31/19 15:46: Blood Gas Bicarbonate Standard 22.6, Arterial Blood pH 7.447, Arterial Blood Partial Pressure CO2 30.8L, Arterial Blood Partial Pressure O2 59.1L, Arterial Blood Total CO2 21.7L, Arterial Blood HCO3 20.8L, Arterial Blood Base Excess - 2.1L, Arterial Blood Oxygen Saturation 91.2L 10/31/19 16:00: Immature Granulocyte % (Auto) 0.8, Neutrophils (%) (Auto) 92.9H, Lymphocytes (%) (Auto) 2.1L, Monocytes (%) (Auto) 4.0, Eosinophils (%) (Auto) 0.0, Basophils (%) (Auto) 0.2, Neutrophils # (Auto) 25.8H, Lymphocytes # (Auto) 0.6L, Monocytes # (Auto) 1.1H, Eosinophils # (Auto) 0.0, Basophils # (Auto) 0.1, Nucleated Red Blood Cells % (auto) 0.0, Erythrocyte Sedimentation Rate 59H, Anion Gap 11, Glomerular Filtration Rate 37.6L, Lactic Acid Level 3.9*H, Calcium Level 8.2L, Total Bilirubin 0.5, Aspartate Amino Transf (AST/SGOT) 13, Alanine Ami notransferase (ALT/SGPT) 16, Alkaline Phosphatase 77, Total Creatine Kinase 120, Creatine Kinase MB 3.2, Creatine Kinase MB Relative Index 2.67, Troponin I < 0.02, C-Reactive Protein, Quantitative 30.20H, IV-Aih-C-Type Natriuretic Peptide 799H, Total Protein 6.2L, Albumin 2.7L, Albumin/Globulin Ratio 0.8 10/31/19 18:15: Bedside Glucose (Misc Panel) 161H 10/31/19 21:00: Lactic Acid Followup at 4 Hours 2.1*H 10/31/19 21:07: Bedside Glucose (Misc Panel) 151H 11/01/19 05:16: Nucleated Red Blood Cells % (auto) 0.0, Anion Gap 7L, Glomerular Filtration Rate 45.5L, Lactic Acid Level 1.2, Calcium Level 8.0L, Magnesium Level 2.5H, Total Bilirubin 0.3, Aspartate Amino Transf (AST/SGOT) 14, Alanine Aminotransferase (ALT/SGPT) 17, Alkaline Phosphatase 68, Total Protein 5.9L, Albumin 2.5L, Albumin/Globulin Ratio 0.7 11/01/19 06:04: Urine Color YELLOW, Urine Appearance CLEAR, Urine pH 5.0, Urine Specific [place] 1.018, Urine Protein NEGATIVE, Urine Glucose (UA) NEGATIVE, Urine Ketones TRACEH, Urine Blood NEGATIVE, Urine Nitrite NEGATIVE, Urine Bilirubin NEGATIVE, Urine Urobilinogen 0.2, Urine Leukocyte Esterase NEGATIVE, Urine WBC (Auto) 2, Urine RBC (Auto) 0, Urine Hyaline Casts (Auto) 0, Urine Bacteria (Auto) NEGATIVE, Urine Squamous Epithelial Cells 0, Urine Sperm (Auto) 11/01/19 11:22: Bedside Glucose (Misc Panel) 117H CBC/BMP Laboratory Tests 10/31/19 16:00 11/01/19 05:16 Microbiology Microbiology 10/31/19 Blood Culture, Received Pending 10/31/19 Blood Culture, Received Pending 10/31/19 Respiratory Virus Panel (PCR) (SPENSER) - Final, Complete KIKO RODGERS MD Nov 01, 2019 13:55
[2019-11-01 14:00] VITALS: BP 117/71
[2019-11-01] MEDS: NITROGLYCERIN 0.4 MG/HR PATCH TD SCH (16:17)
[2019-11-01] MEDS: PRAVASTATIN 20 MG TAB PO SCH (20:40)
[2019-11-01] MEDS ORDERED: **NOTE PATIENT COMMENT** MISC XX SCH (21:00)
[2019-11-01 22:00] VITALS: BP 129/73
[2019-11-02] MEDS: PIPERACILLIN/TAZOBACTAM SOD 2.25 GM in D5W MINI-BAG PLUS 50 ML IV SCH ×2 (04:18→09:51)
[2019-11-02 06:00] VITALS: BP 124/70
[2019-11-02] MEDS: methylPREDNISolone 40MG 1ML VIAL IV SCH (06:08)
[2019-11-02 06:21] LABS: HEMATOCRIT 43.1 % (42.0-52.0); MEAN CORPUSCULAR HGB CONC 32.5 g/dl (32.0-36.5); MEAN CORPUSCULAR VOLUME 95.4 fl (80.0-96.0); PLATELET COUNT, AUTOMATED 247 10^3/uL (150-450); RED BLOOD COUNT 4.52 10^6/uL (4.30-6.10)
[2019-11-02 06:41] LABS: CALCIUM LEVEL 8.3 MG/DL (8.8-10.2); CREATININE FOR GFR 1.37 MG/DL (0.70-1.30); GLOMERULAR FILTRATION RATE 54.8 (>49); POTASSIUM SERUM 4.3 MEQ/L (3.5-5.1)
[2019-11-02] MEDS: TIOTROPIUM INHALER/CAPSULE (SPIRIVA) INH SCH (07:33)
[2019-11-02] MEDS: HumaLOG INSULIN (NovoLOG) PER UNIT SC SCH ×2 (09:50→13:20)
[2019-11-02] MEDS: GABAPENTIN 300 MG CAP PO SCH (09:52)
[2019-11-02] MEDS: ASPIRIN 81 MG ENTERIC TAB PO SCH (09:52)
[2019-11-02] MEDS: OMEPRAZOLE 20 MG CAP PO SCH (09:52)
[2019-11-02] MEDS: HEPARIN SOD (PORCINE) 5000UNITS/ML 1ML VIAL/SYRINGE SC SCH (09:53)
[2019-11-02] MEDS: buPROPion **SR TABLET** (ZYBAN) 150MG PO SCH (09:53)
[2019-11-02 09:54] VITALS: BP 138/76
[2019-11-02] MEDS: NITROGLYCERIN 0.4 MG/HR PATCH TD SCH (09:54)
[2019-11-02] MEDS: ANEXSIA, NORCO 7.5MG/325MG TABLET(HYDROCODONE/APAP) PO PRN ×2 (10:04→13:21)
--- NOTE | 2019-11-02 10:28 | REP ---
CHEST X-RAY: TWO VIEWS. HISTORY: Pneumonia. Comparison chest x-ray: April 18, 2018 FINDINGS: Monitoring electrodes overlie the chest. The lungs are somewhat hyperinflated. Extensive emphysematous changes are seen in the upper lobes and fibrotic pattern is seen in the lower lobes, as before. There is a nodular focus of increased density in the right lower lung field, which is a new finding. This measures approximately 2.4 cm. The patient is status post cervicothoracic spine fusion. Heart is not enlarged. The thoracic aorta is somewhat tortuous. IMPRESSION: Evidence of COPD, advanced emphysema in the upper lobes. Interstitial fibrosis pattern in the lower lobes. Ill-defined nodular opacity right lower lobe 2.4 cm in diameter. This is a new finding. Electronically Signed by Osei Pino MD 11/02/2019 11:02 A
--- NOTE | 2019-11-02 11:09 | IPNPDOC ---
Subjective Date Seen The patient was seen on 11/02/19. Subjective Chief Complaint/HPI Patient is comfortable. He was to go home today, he was still hypoxic on 2 L nasal cannula. On ambulation, so will increase oxygen to 3 later nasal cannula and recheck again for requirement of home oxygen. Patient offers no complaints of chest pain, shortness of breath or cough General: Denies: ROS Unobtainable, Chills, Night Sweats, Fatigue, Malaise, Normal Appetite, Other Symptoms Eyes: Denies: Pain, Vision change, Conjunctivae inflammation, Eyelid inflammation, Redness, Other ENT: Denies: Head Aches, Ear Pain, Dysphagia, Sinus Congestion, Post Nasal Drip, Sore Throat, Epistaxis, Other Symptoms Skin: Denies: Rash, Lesions, Jaundice, Bruising, Itching, Dry, Breakdown, Nail Changes, Other Cardiovascular: Denies: Chest Pain, Palpitations, Orthopnea, Paroxysmal Noc. Dyspnea, Lt Headedness Gastrointestinal: Denies: Nausea, Vomiting, Abdominal Pain, Diarrhea, Constipation, Melena, Hematochezia, Other Symptoms Genitourinary: Denies: Dysuria, Frequency, Incontinence, Hematuria, Retention, Other Symptoms Musculoskeletal: Denies: Neck Pain, Back Pain, Shoulder Pain, Arm Pain, Hand Pain, Leg Pain, Foot Pain, Joint Pain, Muscle Pain, Spasms, Other Symptoms Neurological: Denies: Weakness, Numbness, Incoordination, Change in speech, Confusion, Seizures, Other Symptoms Psych: Denies: Mood Normal, Anxiety, Depression, Memory Issues, Thoughts of Self Harm, Anger, Thoughts of Harming Other, Other Psych Objective Physical Examination General Exam: Positive: Alert, Cooperative Eye Exam: Positive: PERRLA, Conjunctiva & lids normal Neck Exam: Positive: Supple Chest Exam: Positive: Other (crackles on bilateral bases, left more than right) Heart Exam: Positive: Rate Normal, Normal S1, Normal S2 Abdomen Exam: Positive: Normal bowel sounds Extremity Exam: Positive: Normal pulses Skin Exam: Positive: Nl turgor and temperature Neuro Exam: Positive: Strength at 5/5 X4 ext, Cranial Nerves 3-12 NL Assessment /Plan Problems (1) Multifocal pneumonia Status: Acute Problem Text: Patient was diagnosed with multifocal pneumonia at [facility] But patient is afebrile. His WBC count is slightly elevated to 17K but is most likely secondary to steroids and pro calcitonin is 0.96 Clinically there is no evidence of acute bacterial infection. Repeat chest x-ray shows no evidence of any infiltrates. I will DC IV antibiotics and monitor him clinically (2) CKD (chronic kidney disease) Status: Chronic Problem Text: C KD stage III Monitor renal functions Continue home meds and further workup as an outpatient. Patient being admitted today is 39 and creatinine of 1.37 (3) COPD exacerbation Problem Text: Patient has extensive emphysema and upper lobes, also interstitial fibrosis in the lower lobes There is also new nodule, obesity, right lower lobe 2.4 cm Patient is still hypoxic on ambulation with O2 supplement Will titrate O2. Once he is pulse ox is more than 88% on desired range of oxygen, then we will discharge him home DC Solu-Medrol. Start prednisone 30 mg by mouth daily Continue nebulizer treatment Status with Dr. Ventura according to him. Patient follows up with him and also with the [facility] and agreed with the present management . (4) CAD (coronary artery disease) Status: Chronic Problem Text: Continue home meds (5) Diabetes mellitus Status: Chronic Problem Text: Fingerstick blood sugar every 6 hours with coverage Continue home meds (6) Lung nodule Status: Acute Problem Text: Patient is chest x-ray, PA and lateral was ordered this morning X-ray report is consistent with: IMPRESSION: Evidence of COPD, advanced emphysema in the upper lobes. Interstitial fibrosis pattern in the lower lobes. Ill-defined nodular opacity right lower lobe 2.4 cm in diameter. This is a new finding. I discussed case with Dr. Ventura over the phone, according Dr. Barragan this finding is probably old but he will follow-up patient as an outpatient after he is discharged from the hospital. Plan/VTE VTE Prophylaxis Ordered?: Yes VS, I&O, 24H, Fishbone Vital Signs/I&O Vital Signs Date Time Temp Pulse Resp B/P (MAP) Pulse Ox O2 Delivery O2 Flow Rate FiO2 11/02/19 10:04 20 11/02/19 09:54 138/76 11/02/19 09:52 84 11/02/19 06:00 97.9 91 Nasal Cannula 2.5 I&O- Last 24 Hours up to 6 AM0 11/02/19 06:00 Intake Total 2350 ml Output Total 0 ml Balance 2350 ml Laboratory Data 24H LABS Laboratory Tests 2 11/01/19 11:22: Bedside Glucose (Misc Panel) 117H 11/01/19 16:17: Bedside Glucose (Misc Panel) 148H 11/01/19 20:28: Bedside Glucose (Misc Panel) 115 11/02/19 05:19: Nucleated Red Blood Cells % (auto) 0.0, Anion Gap 8, Glomerular Filtration Rate 54.8, Calcium Level 8.3L CBC/BMP Laboratory Tests 11/02/19 05:19 Microbiology Microbiology 10/31/19 Blood Culture - Preliminary, Resulted No growth after 24 hours . All specim... 10/31/19 Blood Culture - Preliminary, Resulted No growth after 24 hours . All specim... 10/31/19 Respiratory Virus Panel (PCR) (SPENSER) - Final, Complete ANGELO GUTIERREZ MD Nov 02, 2019 11:09
[2019-11-02 12:00] VITALS: O2SAT 89
[2019-11-02] MEDS ORDERED: COMBAER6 INH (12:17)
[2019-11-02] MEDS ORDERED: PRED10TA2 PO (12:17)
[2019-11-02] MEDS: VITAMIN D 1,000 INTERNATIONAL UNITS TABLET PO SCH (13:19)
--- NOTE | 2019-11-02 13:39 | DS.PDOC ---
Discharge Summary General Date of Admission Oct 31, 2019 at 15:10 Date of Discharge 11/02/19 Discharge Summary PROCEDURES PERFORMED DURING STAY: None. ADMITTING DIAGNOSES: 1. Multifocal pneumonia. DISCHARGE DIAGNOSES: 1. Exacerbation of emphysema, multifocal pneumonia ruled out, acute respiratory failure with hypoxia, CAD, status post GA, diabetes mellitus type 2, history of chronic systolic heart failure, right lower lobe nodule, pulmonary fibrosis COMPLICATIONS/CHIEF COMPLAINT: Right Lower Lobe Pneumonia/Hypoxia Resp. Failure. HISTORY OF PRESENT ILLNESS: HISTORY OF PRESENT ILLNESS: 69-year-old male with past medical history of COPD, coronary artery disease, GA, status post stent placement 2, congestive heart failure, diabetes mellitus and chronic kidney disease is transferred from [facility] for pneumonia. Patient was admitted there yesterday for pneumonia, requiring 5 L of supplemental oxygen by nasal cannula and transferred for higher level of care. Patient seen in the ICU, comfortable, reports improvement in dyspnea and cough from yesterday. He reports falling 2 weeks ago and injuring his right hand and right chest wall, has been taking shallow breaths since then and developed a cough and fever 3 days ago for which she went to the hospital. He reports improvement in symptoms since yesterday. He has no additional complaints at this time, denies nausea, vomiting, abdominal pain, diarrhea or constipation.. HOSPITAL COURSE: Patient was transfer from [facility] with diagnosis of multifocal pneumonia and to rule out COVID Covid-19 was ruled out at [facility] Patient was diagnosed with multifocal pneumonia at [facility] But patient is afebrile. His WBC count is slightly elevated to 17K but is most likely secondary to steroids and pro calcitonin is 0.96 Clinically there is no evidence of acute bacterial infection. Repeat chest x-ray shows no evidence of any infiltrates. pts IV antibiotics were DC'd and he is no need for oral antibiotics, and patient will be discharged home today with home oxygen 2 L nasal cannula on rest as well as on ambulation. Patient will follow with Dr. Ventura in 1-2 weeks for follow-up of his chest, chest x-ray report which shows right lower lobe pulmonary nodule CKD stage III Continue home meds and further workup as an outpatient. Patient being admitted today is 39 and creatinine of 1.37 She was also treated for exacerbation of COPD/emphysema Patient has extensive emphysema and upper lobes, also interstitial fibrosis in the lower lobes There is also new nodule, obesity, right lower lobe 2.4 cm Patient is still hypoxic on ambulation with O2 supplement Will titrate O2. Once he is pulse ox is more than 88% on desired range of oxygen, then we will discharge him home DC Solu-Medrol. Start prednisone 30 mg by mouth daily Continue nebulizer treatment Status with Dr. Ventura according to him. Patient follows up with him and also with the [facility] and agreed with the present management Coronary artery disease: Stable, Continue home meds Diabetes mellitus type 2: Stable on home meds Lung nodule: Patient is chest x-ray, PA and lateral was ordered this morning X-ray report is consistent with: IMPRESSION: Evidence of COPD, advanced emphysema in the upper lobes. Interstitial fibrosis pattern in the lower lobes. Ill-defined nodular opacity right lower lobe 2.4 cm in diameter. This is a new finding. I discussed case with Dr. Ventura over the phone, according Dr. Barragan this finding is probably old but he will follow-up patient as an outpatient after he is discharged from the hospital.. DISCHARGE MEDICATIONS: Please see below. ALLERGIES: Please see below. PHYSICAL EXAMINATION ON DISCHARGE: VITAL SIGNS: Please see below. GENERAL: Within normal limits HEENT: PERRLA, extra regular muscles intact NECK: Supple CARDIOVASCULAR EXAMINATION: S1, S2, regular RESPIRATORY EXAMINATION: Crackles at bilateral bases ABDOMINAL EXAMINATION: , Soft, nontender, bowel sound present EXTREMITIES: No clubbing, cyanosis, edema SKIN: Normal NEUROLOGICAL EXAMINATION: . No focal motor sensory deficit PSYCHIATRIC EXAMINATION: Normal LABORATORY DATA: Please see below. IMAGING: Chest x-ray:IMPRESSION: Evidence of COPD, advanced emphysema in the upper lobes. Interstitial fibrosis pattern in the lower lobes. Ill-defined nodular opacity right lower lobe 2.4 cm in diameter. This is a new finding. PROGNOSIS: Good ACTIVITY: As tolerated. DIET: As tolerated DISCHARGE PLAN: Home with home oxygen DISPOSITION: . Home DISCHARGE INSTRUCTIONS: 1. Follow with Dr. Ventura as an outpatient in 1-2 weeks. ITEMS TO FOLLOWUP ON ON OUTPATIENT: 1. Follow-up with Dr. Ventura with the chest x-ray findings of pulmonary nodule. DISCHARGE CONDITION: Stable. TIME SPENT ON DISCHARGE:36 minutes. Vital Signs/I&Os Vital Signs Date Time Temp Pulse Resp B/P (MAP) Pulse Ox O2 Delivery O2 Flow Rate FiO2 11/02/19 13:21 20 11/02/19 12:00 89 Nasal Cannula 3.0 11/02/19 09:54 138/76 11/02/19 09:52 84 11/02/19 06:00 97.9 I&O- Last 24 Hours up to 6 AM 11/02/19 06:00 Intake Total 2350 ml Output Total 0 ml Balance 2350 ml Laboratory Data Labs 24H Laboratory Tests 2 11/01/19 16:17: Bedside Glucose (Misc Panel) 148H 11/01/19 20:28: Bedside Glucose (Misc Panel) 115 11/02/19 05:19: Nucleated Red Blood Cells % (auto) 0.0, Anion Gap 8, Glomerular Filtration Rate 54.8, Calcium Level 8.3L 11/02/19 11:45: Bedside Glucose (Misc Panel) 124H CBC/BMP Laboratory Tests 11/02/19 05:19 FSBS Laboratory Tests Test 11/01/19 16:17 11/01/19 20:28 11/02/19 11:45 Range/Units Bedside Glucose (Misc Panel) 148 115 124 80-115 MG/DL Microbiology Microbiology 10/31/19 Blood Culture - Preliminary, Resulted No growth after 24 hours . All specim... 10/31/19 Blood Culture - Preliminary, Resulted No growth after 24 hours . All specim... 10/31/19 Respiratory Virus Panel (PCR) (SPENSER) - Final, Complete Discharge Medications Scheduled Aspirin (Aspirin EC) 81 Mg Tab, 81 MG PO DAILY, (Reported) Bumetanide (Bumetanide) 2 Mg Tab, 2 MG PO DAILY, (Reported) Bupropion HCl (Bupropion HCl Sr) 150 Mg Tab, 150 MG PO BID, (Reported) Cholecalciferol (Vitamin D3) (Vitamin D3) 1,000 Unit Tablet, 1,000 UNITS PO DAILY, (Reported) TAKES AT LUNCHTIME Diltiazem HCl (Diltiazem 24Hr ER) 120 Mg Cap, 120 MG PO DAILY, (Reported) Gabapentin (Gabapentin) 300 Mg Cap, 300 MG PO BID, (Reported) TAKES BEFORE LUNCH AND SUPPER Gabapentin (Gabapentin) 300 Mg Cap, 600 MG PO QHS, (Reported) Hydrocodone/Acetaminophen (Hydrocodone-Acetamin 7.5-325) 1 Each Tablet, 1 TAB PO TID, (Reported) Ipratropium/Albuterol Sulfate (Combivent Respimat 20-100 Mcg) 4 Gm Mist.inhal, 1 PUFF INH QID Nitroglycerin (Nitroglycerin Patch) 0.4 Mg/Hr Dis, 0.4 MG TOP DAILY, (Reported) Omeprazole (Omeprazole) 40 Mg Cap, 40 MG PO DAILY, (Reported) Pravastatin Sodium (Pravastatin Sodium) 20 Mg Tab, 20 MG PO QPM, (Reported) Prednisone (Prednisone) 10 Mg Tablet, 10 MG PO TAPER Take 4 tabs daily x 3 days, then 3 tabs daily x 3 days, then 2 tabs daily x 3 days, then 1 tab daily x 3 days and stop Salmeterol/Fluticasone (Advair 500-50 Diskus) 28 Puff/Inhaler Aerp, 1 PUFF INH BID, (Reported) Tiotropium Ballinger (Spiriva) 18 Mcg Cap.w.dev, 1 INHALATION INH DAILY, (Reported) Allergies Coded Allergies: azithromycin (Verified Allergy, Mild, RASH, 10/31/19) varenicline (Verified Adverse Reaction, Unknown, LOSS OF VISION, NIGHTMARES, 10/31/19) ANGELO GUTIERREZ MD Nov 02, 2019 13:39
--- NOTE | 2019-11-02 17:05 | ECGEPIP ---
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
[2019-11-03] MEDS ORDERED: predniSONE 10 MG TAB PO SCH (09:00)
[2019-11-05 16:08] LABS: BODY FLUID CULTURE Not indicated. (.); LEGIONELLA ANTIGEN URINE Negative (Negative); ORGANISM ID Not indicated. (.); SPECIMEN SOURCE Urine (.); URINE STREP PNEUMONIAE ANTIGEN Negative (Negative)
== END 2019-11-02 15:58 | disposition home or self-care (01) | DRG 189 ==
LOC: M ICU 15:10 → EEVIPCON 15:10 → M MSPAV 11-01 00:05
PROVIDERS: ADMIT General Practice; ATTEND Internal Medicine
DX: J96.01 Acute respiratory failure with hypoxia (principal); I50.22 Chronic systolic (congestive) heart failure; J43.9 Emphysema, unspecified; N18.3 Chronic kidney disease, stage 3 (moderate); I25.10 Atherosclerotic heart disease of native coronary artery without angina pectoris; I25.2 Old myocardial infarction; E11.9 Type 2 diabetes mellitus without complications; R91.1 Solitary pulmonary nodule; J84.10 Pulmonary fibrosis, unspecified; Z95.2 Presence of prosthetic heart valve; E66.9 Obesity, unspecified; Z79.82 Long term (current) use of aspirin; Z79.899 Other long term (current) drug therapy; Z88.8 Allergy status to other drugs, medicaments and biological substances; M54.5 Low back pain; M54.2 Cervicalgia

== ENCOUNTER → 2021-01-07 | Outpatient (CLI) | payer MEDICARE, OTHER ==
[~2021-01-07] MED LIST changes: +COMBAER6 INH; +CVS1CAP2 PO; +D31000TA2 PO; +HYDR-4514 PO; +INSUH10VL SC; +IPRA0.00 INH; +LOVE1INJ2 SC; +METH125I3 IV; +OMEP40CA4 PO; -OMEP40CA97 PO; +SPIR1CAP INH; +ZOSY1INJ5 IV
--- NOTE | 2021-01-07 10:15 | REP ---
INDICATION: HX OF NICOTINE DEPENDENCE. COMPARISON: 05/29/2019. 11/26/2017. TECHNIQUE: Low dose screening CT chest performed without the use of intravenous contrast. FINDINGS: Lungs: There are stable emphysematous and fibrotic changes bilaterally. In the left lower lobe there are 2 stable nodules on image number 68 measuring 4 mm and 5 mm in diameter. In the right lower lobe there is a stable 3 mm nodular density on image 54. In the right upper lobe there is a stable 3 mm nodule on image 39, and 2 others are seen, also stable, on images 35 and 36. No new abnormal parenchymal opacities are seen. Heart: Not enlarged. Thoracic aorta: No aneurysm. Visualized osseous structures: Metallic hardware is seen in the upper thoracic spine. IMPRESSION: Category 2, benign low-dose noncontrast CT lungs. There are stable parenchymal findings as discussed in detail above. <Electronically signed by Nguyễn Estrella > 01/07/21 1014
== END ==
LOC: M RAD 09:42
PROVIDERS: ATTEND Internal Medicine Pulmonary Disease
DX: Z12.2 Encounter for screening for malignant neoplasm of respiratory organs (principal); Z87.891 Personal history of nicotine dependence; J43.9 Emphysema, unspecified; J84.10 Pulmonary fibrosis, unspecified